=== PATIENT | male | born 1960 | race Hispanic/Latino ===

== ENCOUNTER 2019-05-12 12:23 | Outpatient (CLI) | payer OTHER ==
--- NOTE | 2019-05-12 20:04 | RAD ---
RIGHT KNEE TWO VIEWS: Date: 05-12-2019 FINDINGS: No fracture or joint effusion was seen. The articular surfaces are smooth. I am not impressed by any access arthritic change. IMPRESSION: No acute finding. POS: HOME
== END 2019-05-12 12:24 | disposition home or self-care (01) ==
LOC: BURRAD 12:23
PROVIDERS: ATTEND Family Medicine
DX: M25.561 Pain in right knee (principal)